=== PATIENT | male | born 1990 | race Caucasian/White ===

== ENCOUNTER 2019-06-29 09:46 | Emergency (ER) | payer SELFPAY ==
[2019-06-29 11:02] VITALS: BP 126/77
--- NOTE | 2019-06-29 11:47 | UC ---
Skin Complaint HPI - HPI Summary HPI Summary: Per rn physician office: ""I'm pretty sure it's cellulitis, in the early stages at least." ~1.5cm oval shaped pustule/vesicle on top of right great toe for one week; symptoms worsened yesterday. Surrounding erythema and tenderness. Denies fever/chills. Denies MRSA history. Similar previous episodes. Patient does MMA." -he was seen in past for same thing here - was treated w bactrim w/ good ersults -it happens when he gets new shoes. gets blister on the big toe from irritation and then surrounding cellulitis. -no fevers/chills. no streaks. blister as not popped. - History of Current Complaint Chief Complaint: UCSkin Time Seen by Provider: 06/29/19 11:34 Stated Complaint: RT FOOT COMPLAINT Pain Intensity: 3 - Allergy/Home Medications Allergies/Adverse Reactions: Allergies Allergy/AdvReac Type Severity Reaction Status Date / Time No Known Allergies Allergy Verified 06/29/19 10:57 Home Medications: Home Medications Chrm/Vineg/Bit-Orang Peel/Gr T [Apple Cider Vinegar Plus] 1 tab PO DAILY [History Confirmed 06/29/19] Sulfamethox/Trimethoprim DS* [Bactrim DS 800/160 TAB*] 1 tab PO BID #20 tab [Rx] Sulfamethox/Trimethoprim DS* [Bactrim DS 800/160 TAB*] 1 tab PO BID #20 tab [Rx] Vitamin THERAPEUTIC TAB* [Theragran TAB*] 1 tab PO DAILY 06/29/19 [History Confirmed 06/29/19] PMH/Surg Hx/FS Hx/Imm Hx Previously Healthy: Yes - Surgical History Surgical History: Yes Surgery Procedure, Year, and Place: Right Knee Arthroscopy, ~2008, [place] - Family History Known Family History: Positive: Non-Contributory Negative: Cardiac Disease, Hypertension, Diabetes - Social History Alcohol Use: Weekly Substance Use Type: None Smoking Status (MU): Current Some Day Smoker Type: Cigars Amount Used/How Often: Occasionally Length of Time of Smoking/Using Tobacco: Since Age 23 Have You Smoked in the Last Year: Yes When Did the Patient Quit Smoking/Using Tobacco: 2013 Review of Systems All Other Systems Reviewed And Are Negative: Yes Constitutional: Positive: Negative Skin: Positive: Other - see above Respiratory: Positive: Negative Cardiovascular: Positive: Negative Gastrointestinal: Positive: Negative. Negative: Vomiting, Diarrhea, Nausea Genitourinary: Positive: Negative Motor: Positive: Negative Neurovascular: Positive: Negative Musculoskeletal: Positive: Negative Neurological/Mental Status: Positive: Negative Psychological: Positive: Negative Is Patient Immunocompromised?: No Physical Exam Appearance: Well-Appearing, No Pain Distress, Well-Nourished Vital Signs: Initial Vital Signs Temp 98.4 F 06/29/19 10:55 Pulse 87 06/29/19 10:55 Resp 18 06/29/19 10:55 BP 126/77 06/29/19 10:55 Pulse Ox 97 06/29/19 10:55 Vital Signs Reviewed: Yes ENT Exam: Normal Respiratory Exam: Normal Respiratory: Positive: Chest non-tender, Lungs clear, Normal breath sounds Cardiovascular Exam: Normal Cardiovascular: Positive: RRR Musculoskeletal Exam: Normal Neurological Exam: Normal Psychological Exam: Normal Skin: Positive: Other - left great toe w/ superimporsed 1 cm vessicle w. serous filled fluid. surrounding mild erytehma and mild warmth on toe surrounding. CR brisk. FROM. sens intact. blanching. Course/Dx - Course Course Of Treatment: left great toe w/ blister due to irritation form new shoes. mild surroudning celluitis. terat w/ bactrim. do not pop the blister. keep covered if it does. -has been tretated the same here before. - Differential Diagnoses - Skin Complaint Differential Diagnoses: Cellulitis - Diagnoses Provider Diagnosis: Cellulitis of great toe, left Discharge ED - Sign-Out/Discharge Documenting (check all that apply): Patient Departure All imaging exams completed and their final reports reviewed: No Studies - Discharge Plan Condition: Stable Disposition: HOME Prescriptions: Sulfamethox/Trimethoprim DS* [Bactrim DS 800/160 TAB*] 1 tab PO BID #20 tab Patient Education Materials: Cellulitis (ED) Referrals: Jesusita Chacko MD [Primary Care Provider] - Additional Instructions: -It is recommended that you take a probiotic daily while you are on antibiotics. A few common brands that you can buy over the counter are colon health, align and florastor. These can help prevent a colon infection called c diff that can be associated with antibiotic use. - Billing Disposition and Condition Condition: STABLE Disposition: Home
== END 2019-06-29 11:59 | disposition home or self-care (01) ==
LOC: UCCORT 09:46
DX: L03.032 Cellulitis of left toe (principal); F17.290 Nicotine dependence, other tobacco product, uncomplicated
CPT/HCPCS: 99202; G0463